=== PATIENT | female | born 2000 | race Two or more races ===

== ENCOUNTER 2025-08-30 11:08 | Emergency (ER) | payer MEDICAID ==
[~2025-08-30] VITALS: Ht 170.2 cm; Wt 104.8 kg
--- NOTE | 2025-08-30 11:35 | ED.PDOC ---
GI ASSESSMENT HPI Comments This is a 25 year old female presenting to the ED with chief complaint of abdominal pain. Patient reports that she has been experiencing suprapubic abdominal pain for the past 2 days with associated lightheadedness and lower back pain for the past 4 days. Patient states that she is currently 17 weeks and she was advised to come to the ED for further evaluation. Patient denies any vaginal bleeding, fever, chills, dysuria, chest pain, or SOB. Chief Complaint: Abdominal Pain Time Seen by MD: 11:32 Reviewed Notes: Nurses Notes, Medications, Allergies Information Source: Patient Mode of Arrival: Ambulatory Timing: Days Duration: Since onset Prehospital treatment: None Quality: Aching Vomitus: None Stool: Normal Severity: Moderate Recent: None Recent Hx of: None Pain Location: Suprapubic Modifying Factors: Nothing Associated sign and symptoms: Abdominal Pain Past Medical History PAST MEDICAL HISTORY: Denies Surgical History: Denies all surgeries [employer] History: No Pertinent [employer] History Family History Family History: Reviewed,noncontributory to illness Social History Smoker: Non-Smoker Alcohol: Denies ETOH Use Drugs: Denies Drug Use Lives In: Home Constitutional: denies: chills, diaphoresis, fatigue, fever, malaise, sweats, weakness, others EENTM: denies: blurred vision, double vision, ear bleeding, ear discharge, ear drainage, ear pain, ear ringing, eye pain, eye redness, hearing loss, mouth pain, mouth swelling, nasal discharge, nose bleeding, nose congestion, nose pain, photophobia, tearing, throat pain, throat swelling, voice changes, others Respiratory: denies: cough, hemoptysis, orthopnea, SOB at rest, shortness of breath, SOB with excertion, stridor, wheezing, others Cardiovascular: reports: lightheadedness; denies: chest pain, dizzy spells, diaphoresis, Dyspnea on exertion, edema, irregular heart beat, left arm pain, palpitations, PND, syncope, others Gastrointestinal: reports: abdominal pain; denies: abdomen distended, blood streaked bowels, constipated, diarrhea, dysphagia, difficulty swallowing, hematemesis, melena, nausea, poor appetite, poor fluid intake, rectal bleeding, rectal pain, vomiting, others Genitourinary: reports: ; denies: abnormal vagina bleeding, burning, dyspareunia, dysuria, flank pain, frequency, hematuria, incontinence, pain, vagina discharge, urgency, others Neurological: denies: dizziness, fainting, headache, left sided numbness, left sided weakness, numbness, paresthesia, pre-existing deficit, right sided numbness, right sided weakness, seizure, speech problems, tingling, tremors, weakness, others Musculoskeletal: reports: back pain; denies: gout, joint pain, joint swelling, muscle pain, muscle stiffness, neck pain, others Integumetry: denies: bruises, change in color, change in hair/nails, dryness, laceration, lesions, lumps, rash, wounds, others Allergic/Immunocompromised: denies: Difficulty Healing, Frequent Infections, Hives, Itching, others Hematologic/Lymphatic: denies: anemia, blood clots, easy bleeding, easy bru ising, swollen glands, others Endocrine: denies: excessive hunger, excessive sweating, excessive thirst, e xcessive urination, flushing, intolerance to cold, intolerance to heat, unexplained weight gain, unexplained weight loss, others Psychiatric: denies: anxiety, bipolar disorder, depression, hopeless, panic disorder, schizophrenia, sleepless, suicidal, others All Other Systems: Reviewed and Negative Physical Exam General Appearance: Moderate Distress, Normal HEENT: Normal ENT Inspection, Pharynx Normal, TMs Normal Neck: Full Range of Motion, Non-Tender, Normal, Normal Inspection Respiratory: Chest Non-Tender, Lungs Clear, No Accessory Muscle Use, No Respiratory Distress, Normal Breath Sounds Cardiovascular: No Edema, No JVD, No Murmur, No Gallop, Normal Peripheral Pulses, Regular Rate/Rhythm Breast Exam: Deferred Gastrointestinal: No Organomegaly, Non Tender, No Pulsatile Mass, Normal Bowel Sounds, Soft Genitalia: Deferred Pelvic: Deferred Rectal: Deferred Extremities: No calf tenderness, Normal capillary refill, Normal inspection, Normal range of motion, Non-tender, No pedal edema Musculoskeletal : Apperance: Normal Neurologic: Alert, maintenance millwright II-XII nml as Tested, No Motor Deficits, Normal Affect, Normal Mood, No Sensory Deficits Cerebellar Function: Normal Reflexes: Normal Skin: Dry, Normal Color, Warm Peripheral Pulses: 3+ Radial (R), 3+ Radial (L) Lymphatic: No Adenopathy Was a procedure done? Was a procedure done?: No GI differential Dx Differential Diagnosis: Constipation, Diverticular disease, Gastritis/PUD X-Ray, Labs, Meds, VS Vital Signs Date Time Temp Pulse Resp B/P (MAP) Pulse Ox O2 Delivery O2 Flow Rate FiO2 08/30/25 14:31 98.1 80 16 127/72 (90) 98 98.1 08/30/25 12:39 98.2 79 16 112/69 (83) 98 98.2 08/30/25 11:15 97.8 112 18 128/84 98 97.8 Lab Test 08/30/25 13:00 Range/Units Urine Color Yellow Yellow Urine Clarity Clear Clear Urine pH 5.5 5.0-9.0 Urine Specific [place] 1.031 1.001-1.035 Urine Protein Negative Negative Urine Ketones 1+ H Negative Urine Blood Negative Negative /uL Urine Nitrite Negative Negative Urine Bilirubin Negative Negative Urine Urobilinogen Normal Negative mg/dL Urine Leukocyte Esterase 1+ Negative /uL Urine RBC 3 0 - 4 /hpf Urine Microscopic WBC 8 H 0-5 /HPF Urine Squamous Epithelial Cells Few <5 /hpf Urine Bacteria Few H None Seen /hpf Urine Glucose 4+ H Normal mg/dL Patient alert. Complaining of suprapubic discomfort. Vitals stable. Answering questions. She is . Ambulating without difficulty. Was told to continue taking her vitamins. Urinalysis shows UTI. Was given prescription of Keflex antibiotic. Was told to follow up with her OBGYN. Was told to follow up with her primary care physician. Was told to come back if there is any problem. Time of 1ST Reevaluation: 12:31 Reevaluation 1ST: Unchanged Patient Education/Counseling: Diagnosis, Treatment Family Education/Counseling: No Family Present SEPSIS Sepsis Screen Date sepsis recognized/suspect: Aug 30, 2025 Time Sepsis recognized/suspect: 1115 Recent Procedure: No On Antibiotic Therapy: No Respiratory Rate >20: No Heart Rate >90: No Temp<36 C (96.8 F) or >38.3 C: No SBP <90 or MAP <65 mmHG: No New Acute Mental Status Change: No Is the patient on CPAP, BIPAP,: No Physician Orders Urine (08/30/25 ) Ob Ultrasound Comp Gtr 14 Wks (08/30/25 11:32) Vital Signs Date Time Temp Pulse Resp B/P (MAP) Pulse Ox O2 Delivery O2 Flow Rate FiO2 08/30/25 14:31 98.1 80 16 127/72 (90) 98 98.1 08/30/25 12:39 98.2 79 16 112/69 (83) 98 98.2 08/30/25 11:15 97.8 112 18 128/84 98 97.8 Departure 1 Departure Time of Disposition: 13:13 Impression: Primary Impression: Normal Qualified Codes: Z34.90 - Encounter for supervision of normal , unspecified, unspecified trimester Additional Impression: Urinary tract infection Qualified Codes: N30.00 - Acute cystitis without hematuria Disposition: 01 HOME / SELF CARE / HOMELESS Condition: Good e-Prescriptions Cephalexin (KEFLEX CAPSULE) 250 Mg Cp 250 MG PO QID for 5 Days, #20 BOTTLE Prov: KATIE CHILEL MD 08/30/25 Discharged With: Self Critical Care Note Critical Care Time?: No Stability Stability form required: No Heart Score Heart Score: Heart Score Response (Comments) Value History N/A 0 EKG N/A 0 Age N/A 0 Risk Factors N/A 0 Troponin N/A 0 Total 0 I personally scribed for KATIE CHILEL MD ([email or web address]) on 08/30/25 at 11:35. Electronically submitted by Edmundo Barnard ([email or web address]). KATIE CHILEL MD Aug 30, 2025 11:35
--- NOTE | 2025-08-30 14:07 | DVH ---
LIMITED OB ULTRASOUND > 14 WKS: HISTORY: suprapubicdiscomfort TECHNIQUE: Multiple real-time grayscale images of the gravid uterus with duplex Doppler color flow and M-mode spectral analysis. TRANSDUCER: Transabdominal COMPARISON: None FINDINGS: IUP single live fetus at 17 weeks and 0 days based on composite averages of the BPD, head circumference, abdominal circumference and femur length Estimated weight 173 grams heart rate 156 beats per minute ROBERTH is subjectively within normal limits, deepest pocket measures 3.4 cm Cervix is closed and measures 3.1 cm, transabdominal Cephalic Presentation Grade 1, posterior Placenta without previa or abruption. Limited assessment of anatomy secondary to early gestational age. Grossly, 4-chamber heart, stomach and bladder are within normal limits. IMPRESSION: IUP single live fetus at 17 weeks and 0 days AUA corresponding to an MARYJANE of 02/07/2026
[2025-08-30 14:14] LABS: Urine Protein, UAD Negative (Negative)
[2025-08-30 14:31] VITALS: BP 127/72; TEMP 98.1
[2025-08-30] MEDS ORDERED: CEPH250C PO (15:01)
[2025-08-30 15:39] VITALS: PULSE 80; RESP 16; O2SAT 98
== END 2025-08-30 15:41 | disposition home or self-care (01) ==
LOC: ER 11:08
DX: O23.42 Unspecified infection of urinary tract in pregnancy, second trimester (principal); R10.24 Suprapubic pain; N30.00 Acute cystitis without hematuria; Z3A.17 17 weeks gestation of pregnancy
CPT/HCPCS: 76805; 81001